=== PATIENT | female | born 1970 | race Caucasian/White ===

== ENCOUNTER 2021-02-09 10:20 | Emergency (ER) | payer SELFPAY ==
[~2021-02-09] VITALS: Ht 160 cm; Wt 90.0 kg
[2021-02-09 10:25] VITALS: BP 116/79
[2021-02-09] MEDS ORDERED: ACET-2708 MT (10:43)
[2021-02-09] MEDS ORDERED: ACETAMINOPHEN 325MG TABLET PO ONE (10:45)
== END 2021-02-09 11:20 | disposition home or self-care (01) ==
LOC: ER 10:20
DX: R05.9 Cough, unspecified (principal); J02.9 Acute pharyngitis, unspecified; Z20.822 Contact with and (suspected) exposure to COVID-19
CPT/HCPCS: 87804; 99283; C9803; U0003; U0005

== ENCOUNTER 2021-09-24 09:47 | Emergency (ER) | payer MEDICAID ==
[~2021-09-24] VITALS: Ht 160 cm; Wt 91.0 kg
[~2021-09-24 09:47] MED LIST: ACET-2708 MT
[2021-09-24 10:02] VITALS: BP 135/89
[2021-09-24] MEDS ORDERED: IBUPROFEN 600MG TABLET PO STA (11:19)
[2021-09-24] MEDS ORDERED: TETANUS, DIPHTHERIA, PERTUSSIS VAC/PF 0.5ML (>10YR OLD) IM ONE (11:30)
[2021-09-24] MEDS ORDERED: LIDOCAINE HCL/EPINEPHRINE 1%-EPI 1:100,000 20 ML VIAL INFIL ONE (11:30)
[2021-09-24] MEDS ORDERED: BACITRACIN ZINC OINT UDPKT TOP ONE (11:30)
[2021-09-24] MEDS ORDERED: NAPR-681 PO (14:13)
== END 2021-09-24 14:32 | disposition home or self-care (01) ==
LOC: ER 11:58
DX: S01.81XA Laceration without foreign body of other part of head, initial encounter (principal); S00.83XA Contusion of other part of head, initial encounter; W22.8XXA Striking against or struck by other objects, initial encounter; Y93.89 Activity, other specified; Y92.018 Other place in single-family (private) house as the place of occurrence of the external cause
CPT/HCPCS: 12013; 70450; 90471; 90715; 99284; J3490

== ENCOUNTER 2021-09-26 13:58 | Emergency (ER) | payer MEDICAID ==
[~2021-09-26] VITALS: Ht 160 cm; Wt 73.0 kg
[~2021-09-26 13:58] MED LIST changes: +NAPR-681 PO
[2021-09-26 14:04] VITALS: BP 124/73
== END 2021-09-26 16:14 | disposition home or self-care (01) ==
LOC: ER 13:58
DX: S01.81XD Laceration without foreign body of other part of head, subsequent encounter (principal); X58.XXXD Exposure to other specified factors, subsequent encounter; R51.9 Headache, unspecified; I10 Essential (primary) hypertension
CPT/HCPCS: 99281

== ENCOUNTER 2021-10-03 11:41 | Emergency (ER) | payer MEDICAID ==
[~2021-10-03] VITALS: Ht 160 cm; Wt 91.0 kg
[2021-10-03 11:45] VITALS: BP 123/87
== END 2021-10-03 13:00 | disposition home or self-care (01) ==
LOC: ER 11:41
DX: Z48.02 Encounter for removal of sutures (principal)
CPT/HCPCS: 99281

== ENCOUNTER 2022-08-18 13:59 | Emergency (ER) | payer MEDICAID ==
[~2022-08-18] VITALS: Ht 160 cm; Wt 87.0 kg
[2022-08-18 14:01] VITALS: BP 139/87
[2022-08-18 15:28] LABS: CHLORIDE 108 mEq/L (98-107)
[2022-08-18 15:30] LABS: BASOPHILS % 0.3 % (0.0-2.0); HEMATOCRIT. 40.5 % (36.0-48.0); HEMOGLOBIN. 13.8 g/dL (12.0-16.0); LYMPHOCYTES % 27.6 % (20.0-50.0); MEAN CORPUSCULAR HEMOGLOBIN 32.3 pg (28.0-32.0); MEAN CORPUSCULAR VOLUME 94.8 fL (81.0-99.0); MEAN PLATELET VOLUME 8.1 fl (7.4-10.4); MONOCYTES % 7.5 % (2.0-8.0); NEUTROPHILS % 57.6 % (40.0-76.0); PLATELET 236 x1000/uL (130-400); RED BLOOD CELL COUNT 4.27 mill/uL (4.2-5.4); RED CELL DISTRIBUTION WIDTH 13.1 % (11.6-14.6)
[2022-08-18 15:39] LABS: ETHANOL BLOOD < 10 mg/dL (-10)
== END 2022-08-18 21:55 | disposition left against medical advice (07) ==
LOC: ER 13:59
DX: Z53.21 Procedure and treatment not carried out due to patient leaving prior to being seen by health care provider (principal); I49.9 Cardiac arrhythmia, unspecified
CPT/HCPCS: 36415; 80053; 80320; 84484; 85025; 93005; 99281; G0480

== ENCOUNTER 2023-05-15 10:20 | Emergency (ER) | payer MEDICAID ==
[~2023-05-15] VITALS: Ht 167.6 cm; Wt 105.0 kg
[~2023-05-15 10:20] MED LIST changes: +ASPI-1160 PO; +ATOR40TA70 PO; +CLOP-31 PO; +METO-396 MT; +MIDO10TA MT; -NAPR-681 PO; +SULF1TAB48 MT; +T3 PO; +TRAM50TA3 MT
[2023-05-15 10:38] VITALS: BP 127/75; PULSE 112; RESP 18; TEMP 100; O2SAT 99
[2023-05-15] MEDS: ACETAMINOPHEN 325MG TABLET PO ONE (12:24)
[2023-05-15] MEDS ORDERED: TOPUD MT (12:32)
[2023-05-15] MEDS ORDERED: MOLN200C PO (12:32)
== END 2023-05-15 14:06 | disposition home or self-care (01) ==
LOC: ER 10:20
DX: U07.1 COVID-19 (principal); I10 Essential (primary) hypertension; Z79.899 Other long term (current) drug therapy
CPT/HCPCS: 99283